=== PATIENT | male | born 1925 | race Caucasian/White ===

== ENCOUNTER → 2017-04-20 | Outpatient (CLI) | payer MEDICARE, BC ==
[2017-04-20 12:17] LABS: ABNORMAL IP MESSAGE 1; BASOPHILS % 0.3 % (0.0-2.0); EOSINOPHILS # 0.2 10^3/ul (0.0-0.5); EOSINOPHILS % 1.5 % (0.0-7.0); HEMATOCRIT 35.3 % (42.0-52.0); HEMOGLOBIN 11.3 g/dl (14.0-18.0); LYMPHOCYTES # 1.6 10^3/ul (0.8-2.9); LYMPHOCYTES % 12.8 % (15.0-51.0); MEAN CORPUSCULAR HEMOGLOBIN 30.7 pg (29.0-33.0); MEAN CORPUSCULAR VOLUME 95.9 fl (82.0-101.0); MEAN PLATELET VOLUME 8.8 fl (7.4-10.4); MONOCYTE # 2.3 10^3/ul (0.3-0.9); MONOCYTES % 17.7 % (0.0-11.0); NEUTROPHIL # 8.6 10^3/ul (1.6-7.5); NEUTROPHILS % 66.5 % (39.0-77.0); PLATELET COUNT 336 10^3/UL (140-415); POSITIVE DIFF @See below; RED BLOOD COUNT 3.68 10^6/ul (4.70-6.10); WHITE BLOOD COUNT 12.8 10^3/ul (4.8-10.8)
[2017-04-20 12:39] LABS: ALBUMIN 2.8 g/dl (3.3-4.9); ALBUMIN/GLOBULIN RATIO 1.12; BILIRUBIN,INDIRECT 0.2 mg/dl (0-1.1); BILIRUBIN,TOTAL 0.2 mg/dl (0.2-1.3); CALCIUM 8.2 mg/dl (8.4-10.2); CREATININE 0.9 mg/dl (0.61-1.24); POTASSIUM 3.9 mmol/L (3.5-5.1); TOTAL PROTEIN 5.3 g/dl (6.1-8.1)
[2017-04-20 13:10] LABS: CARCINOEMBRYONIC ANTIGEN 0.4 ng/ml (0.0-5.0)
== END | disposition home or self-care (01) ==
LOC: LAB 11:44
PROVIDERS: ATTEND Internal Medicine
DX: D64.9 Anemia, unspecified (principal); Z85.9 Personal history of malignant neoplasm, unspecified
CPT/HCPCS: 80053; 82378; 85025; 86301

== ENCOUNTER 2017-05-22 13:53 | Inpatient (IN) | payer MEDICARE, BC ==
[~2017-05-22] VITALS: Ht 172.7 cm; Wt 51.3 kg
[2017-05-22 20:01] VITALS: Ht 172.7 cm; Wt 51.3 kg
[2017-05-22] MEDS ORDERED: POTA10TA37 PO (20:23)
[2017-05-22] MEDS ORDERED: HYDR25TA6 PO (20:23)
[2017-05-22] MEDS ORDERED: VIT1TABL33 PO (20:23)
[2017-05-22] MEDS ORDERED: TAMS0.4C2 PO (20:23)
[2017-05-22] MEDS ORDERED: FINA5TAB4 PO (20:23)
[2017-05-22] MEDS ORDERED: LISI40TA9 PO (20:23)
[2017-05-22] MEDS ORDERED: ATEN100T PO (20:23)
[2017-05-22 20:56] VITALS: BP 128/75; RESP 20
[2017-05-22] MEDS ORDERED: ACETAMINOPHEN 500 MG TAB PO PRN (21:00)
[2017-05-22] MEDS: POTASSIUM CHLORIDE (SR) 10 MEQ TAB PO SCH (21:00)
[2017-05-22] MEDS ORDERED: TAMSULOSIN (SR) 0.4 MG CAP PO SCH (21:00)
[2017-05-22] MEDS: ATENOLOL 100 MG TAB PO SCH (21:00)
[2017-05-22] MEDS ORDERED: HYDROCODONE/APAP (5/325) TAB PO PRN (21:00)
[2017-05-22] MEDS ORDERED: ZOLPIDEM 5 MG TAB PO PRN (21:00)
[2017-05-22] MEDS: LISINOPRIL 20 MG TAB PO SCH (22:02)
[2017-05-22] MEDS: DEXTROSE 5%-0.45% NACL 1,000 ML IV SCH (22:04)
[2017-05-22 22:45] LABS: ABNORMAL IP MESSAGE 1; BASOPHILS % 0.3 % (0.0-2.0); EOSINOPHILS # 0.1 10^3/ul (0.0-0.5); EOSINOPHILS % 0.5 % (0.0-7.0); HEMATOCRIT 35.2 % (42.0-52.0); HEMOGLOBIN 11.3 g/dl (14.0-18.0); LYMPHOCYTES # 2.2 10^3/ul (0.8-2.9); LYMPHOCYTES % 14.5 % (15.0-51.0); MEAN CORPUSCULAR HEMOGLOBIN 30.9 pg (29.0-33.0); MEAN CORPUSCULAR HGB CONC 32.1 g/dl (32.0-37.0); MEAN CORPUSCULAR VOLUME 96.2 fl (82.0-101.0); MONOCYTE # 1.7 10^3/ul (0.3-0.9); MONOCYTES % 10.9 % (0.0-11.0); NEUTROPHILS % 71.8 % (39.0-77.0); PLATELET COUNT 348 10^3/UL (140-415); POSITIVE DIFF @See below; RED BLOOD COUNT 3.66 10^6/ul (4.70-6.10); RED CELL DISTRIBUTION WIDTH 14.8 % (11.5-14.5); WHITE BLOOD COUNT 15.2 10^3/ul (4.8-10.8)
[2017-05-22 23:01] LABS: INR 0.98; PARTIAL THROMBOPLASTIN TIME 27.8 Sec (25.0-35.0)
[2017-05-22 23:03] LABS: CALCIUM 8.6 mg/dl (8.4-10.2); CREATININE 0.92 mg/dl (0.61-1.24); POTASSIUM 4.1 mmol/L (3.5-5.1)
[2017-05-23 02:55] VITALS: BP 118/67; RESP 20
[2017-05-23 03:02] LABS: ADD UMIC NO; UR ASCORBIC ACID 40 mg/dL (NEGATIVE); UR BILIRUBIN (Dip) NEGATIVE (NEGATIVE); UR BLOOD (Dip) NEGATIVE (NEGATIVE); UR CLARITY CLEAR (CLEAR); UR COLOR YELLOW (YELLOW); UR GLUCOSE (Dip) NEGATIVE (NEGATIVE); UR KETONES (Dip) NEGATIVE (NEGATIVE); UR LEUKOCYTE ESTERASE (Dip) NEGATIVE Leu/ul (NEGATIVE); UR NITRITE (Dip) NEGATIVE (NEGATIVE); UR SPECIFIC GRAVITY (Dip) 1.019 (1.003-1.030); UR TOTAL PROTEIN (Dip) NEGATIVE (NEGATIVE); UR UROBILINOGEN (Dip) NEGATIVE (NEGATIVE)
--- NOTE | 2017-05-23 07:41 | RADRPT ---
PROCEDURE: XR Chest. CLINICAL INDICATION: Cough. Weight loss. TECHNIQUE: Single frontal view. COMPARISON: No prior study is available for comparison. FINDINGS: The lungs are clear. The heart size is normal. There is calcification in the aorta consistent with atherosclerosis. There is no pleural effusion. There is no pneumothorax. IMPRESSION: 1. Atherosclerosis. 2. Otherwise normal chest x-ray. RPTAT: QQ .Phillip Ryan MD, MD Date Time Electronically viewed and signed by .Phillip Ryan MD, on 05/23/2017 07:41 .R/
[2017-05-23 07:52] VITALS: BP 120/69; RESP 18
[2017-05-23] MEDS: LISINOPRIL 20 MG TAB PO SCH ×2 (09:00→11:51)
[2017-05-23] MEDS: HYDROCHLOROTHIAZIDE 25 MG TAB PO SCH ×2 (09:00→11:50)
[2017-05-23] MEDS: POTASSIUM CHLORIDE (SR) 10 MEQ TAB PO SCH ×4 (09:00→20:25)
[2017-05-23] MEDS: FINASTERIDE 5 MG TAB PO SCH ×2 (09:00→11:49)
[2017-05-23] MEDS: ATENOLOL 100 MG TAB PO SCH ×2 (09:00→11:51)
[2017-05-23] MEDS ORDERED: BARIUM SULF 2% 450 ML BTL (BERRY SMOOTHIE) PO ONE (11:00)
--- NOTE | 2017-05-23 11:00 | HP ---
DATE OF ADMISSION: 05/22/2017 HISTORY OF PRESENT ILLNESS: The patient is an 89-year-old gentleman who is being admitted for evaluation of severe weakness, generalized, with persistent weight loss over the past 4 months. The patient has lost 30 pounds in the last 4-5 months. He states that he has reasonable appetite but complaining of increased gaseous distention, a feeling of bloating and occasional pain in the left upper and lower quadrant. Denies any history of GI bleeds. REVIEW OF SYSTEMS: HEAD: No history of headaches, focal weakness or numbness. No prior history of strokes. Eyes; history of macular degeneration. Has been on medications. ENT; complaints of recurrent tinnitus. No history of hearing loss. NECK: No history neck pain or thyroid disease. CHEST: Has no cough wheezing or asthma. Smoked for about for 5 years while in college. No history of bronchial asthma. No history of hemoptysis or TB. HEART: No PND, orthopnea, no palpitations. The patient does have hypertension and aortic stenosis, being followed by Cardiology. No prior history of CHF. GASTROINTESTINAL: As above. The patient has not had a colonoscopy recently, was supposed to be prepped and it could not be done from home as the patient lives alone and he has been getting increasingly frail and weak. GENITOURINARY: History of polyuria, history of benign prostatic hypertrophy. The patient has been recommended prostatectomy by Dr. Payan. HEMATOLOGICAL: No bleeding diathesis or anemia. GENERAL: History of weight loss as above. SKIN: No recent change in any lesions, any change in the color of any lesions. No history of excessive sun exposure. MEDICATIONS: Include atenolol 100 mg daily; lisinopril 40 mg daily; finasteride 1 tab daily; hydrochlorothiazide 50 mg daily; Klor-Con 10 mEq p.o. b.i.d. PHYSICAL EXAMINATION: GENERAL APPEARANCE: The patient is an average built male who appears frail and appears weak. Mild pallor without cyanosis. VITAL SIGNS: Blood pressure 120/69, temperature 98.4, O2 sat 97 percent on room air. HEENT: Head normocephalic. Mild pallor without cyanosis. Tongue is moist. NECK: Supple. No thyromegaly, bruits, lymphadenopathy. CHEST: Clinically clear. HEART: S1, S2 heard with no definite gallops. Faint systolic murmur with good conduction. ABDOMEN: Umbilical hernia present. Mild tenderness in the left upper and left lower quadrant without rebound. No bruits heard over the abdomen. EXTREMITIES: No edema. Pedal pulsation 2+ bilaterally. Homans sign is negative. RECTAL EXAM: Deferred due to patient discomfort. LABORATORY DATA: So for workup included getting ultrasound of the abdomen and pelvis that showed increased size of the prostate and multiple cysts in the right hepatic lobe of the liver. No gallstones were seen. No thickening of the gallbladder wall. The CEA and CA-19-9 levels were normal about a month ago. His hemoglobin has been gradually dropping over the last 3 months with the last hemoglobin of 11.3 on 04/20/2017. Initial WBC count of 15.2, hematocrit 35.2, platelet count 348,000. BUN 23, creatinine 0.92, potassium 4.1. Chest x-ray shows normal-sized heart, lung win are clear. IMPRESSION: 1. Recent weight loss with progressing anemia, concern about underlying malignancy. 2. Benign prostatic hypertrophy. 3. Symptomatic umbilical hernia. 4. Hypertension. 5. Aortic stenosis. PLAN: We will check stool for OB. Proceed with CT of the abdomen and pelvis. Obtain LDH levels. Obtain GI consultation with Dr. Julian. Consider colonoscopy and upper endoscopy. Consider hematology/oncology consultation if necessary. Dictated By: Satnam Cho MD /felipe/haley /Document#: [id number]
[2017-05-23] MEDS: DEXTROSE 5%-0.45% NACL 1,000 ML IV SCH (11:56)
--- NOTE | 2017-05-23 13:18 | CONS ---
DATE OF ADMISSION: 05/22/2017 DATE OF CONSULTATION: 05/23/2017 HISTORY OF PRESENT ILLNESS: Patient is an 89-year-old gentleman being admitted to the hospital for abdominal pain of 2 months' duration, and significant weight loss. He lost 30 pounds. As per the patient, he has been eating good. His appetite is good, and he does not know why he is losing weight. No GI bleeding. No chest pain. No shortness of breath. No or AREA SAFETY MANAGER problems. The abdominal pain is relieved once he passes flatus. REVIEW OF SYSTEMS: Negative. MEDICATION: All reviewed. He is on atenolol, lisinopril, finasteride for BPH, hydrochlorothiazide. PHYSICAL EXAMINATION: GENERAL APPEARANCE: Looks good for his age. Alert, awake, not in distress. VITAL SIGNS: Stable. HEENT: Unremarkable. NECK: Supple. No thyromegaly. No lymphadenopathy. HEART: No murmur, gallop, or click. LUNGS: Clear. ABDOMEN: Benign, except for the umbilical hernia. EXTREMITIES: No edema. AREA SAFETY MANAGER: Grossly within normal limits. LABORATORY: The patient had a sonogram done at an outside which showed BPH, cyst in the right lobe of the liver. No gallstones. His CEA and CA 19-9 were all within normal limits. His hemoglobin has been gradually dropping. At this time, the hematocrit is 35.2. BUN is 23. IMPRESSION: 1. Abdominal pain confined to the umbilical area. 2. Weight loss 30 pounds. 3. Anemia. 4. Benign prostatic hypertrophy. 5. Hypertension. 6. Aortic stenosis. PLAN: At this point, a CAT scan of the abdomen and pelvis has been ordered. We will review that. If it is negative, will proceed with EGD and colonoscopy tomorrow. Thank you, once again, for the referral. Dictated By: Aleksey Julian MD /fnt/ec /Document#: [id number] CC: Satnam Cho MD;*End*
[2017-05-23] MEDS ORDERED: BISACODYL (EC) 5 MG TAB PO ONE ×2 (14:00→20:00)
[2017-05-23 14:41] LABS: ADD UMIC NO; UR ASCORBIC ACID 20 mg/dL (NEGATIVE); UR BILIRUBIN (Dip) NEGATIVE (NEGATIVE); UR BLOOD (Dip) NEGATIVE (NEGATIVE); UR CLARITY CLEAR (CLEAR); UR COLOR YELLOW (YELLOW); UR GLUCOSE (Dip) NEGATIVE (NEGATIVE); UR KETONES (Dip) NEGATIVE (NEGATIVE); UR LEUKOCYTE ESTERASE (Dip) NEGATIVE Leu/ul (NEGATIVE); UR NITRITE (Dip) NEGATIVE (NEGATIVE); UR SPECIFIC GRAVITY (Dip) 1.018 (1.003-1.030); UR TOTAL PROTEIN (Dip) NEGATIVE (NEGATIVE); UR UROBILINOGEN (Dip) NEGATIVE (NEGATIVE)
[2017-05-23 14:44] VITALS: BP 130/71; RESP 16
[2017-05-23] MEDS ORDERED: PEG/ELECTROLYTES 4L BTL PO ONE ×2 (15:00→18:00)
[2017-05-23] MEDS ORDERED: SOD CHLORIDE 0.9% 100 ML ONE (15:37)
[2017-05-23] MEDS ORDERED: IOHEXOL 300MG/ML 150 ML BTL ONE (15:38)
[2017-05-23 15:56] LABS: ABNORMAL IP MESSAGE 1; BASOPHILS % 0.3 % (0.0-2.0); EOSINOPHILS # 0.2 10^3/ul (0.0-0.5); HEMATOCRIT 36.8 % (42.0-52.0); HEMOGLOBIN 11.7 g/dl (14.0-18.0); LYMPHOCYTES # 2.5 10^3/ul (0.8-2.9); LYMPHOCYTES % 15.6 % (15.0-51.0); MEAN CORPUSCULAR HEMOGLOBIN 30.3 pg (29.0-33.0); MEAN CORPUSCULAR HGB CONC 31.8 g/dl (32.0-37.0); MEAN CORPUSCULAR VOLUME 95.3 fl (82.0-101.0); MEAN PLATELET VOLUME 9.1 fl (7.4-10.4); MONOCYTE # 1.8 10^3/ul (0.3-0.9); MONOCYTES % 11.3 % (0.0-11.0); NEUTROPHILS % 70.4 % (39.0-77.0); PLATELET COUNT 379 10^3/UL (140-415); POSITIVE DIFF @See below; RED BLOOD COUNT 3.86 10^6/ul (4.70-6.10); RED CELL DISTRIBUTION WIDTH 14.7 % (11.5-14.5); WHITE BLOOD COUNT 15.8 10^3/ul (4.8-10.8)
[2017-05-23 16:25] LABS: ALBUMIN 2.5 g/dl (3.3-4.9); ALBUMIN/GLOBULIN RATIO 0.96; CALCIUM 8.3 mg/dl (8.4-10.2); CREATININE 0.79 mg/dl (0.61-1.24); POTASSIUM 4.2 mmol/L (3.5-5.1); TOTAL PROTEIN 5.1 g/dl (6.1-8.1)
[2017-05-23 17:31] LABS: FOLATE 5.6 ng/ml (2.8-20.0)
--- NOTE | 2017-05-23 17:45 | RADRPT ---
PROCEDURE: CT Abdomen and Pelvis with contrast. CLINICAL INDICATION: Abdominal and pelvic pain. Weight loss. TECHNIQUE: CT scan of the abdomen and pelvis with contrast was performed. The patient was scanned following the uncomplicated intravenous administration of 100 cc of Omnipaque-300. Coronal and sag ittal reformatted images were obtained from the axial source images. Images were reviewed on a high- resolution PACS workstation. Total exam DLP is 387.94 mGy-cm. CTDIvol is 7.95 mGy. One or more of the following dose reduction techniques were used: Automated exposure control, adjustment of the mA and/or kV according to patient size, use of iterative reconstruction technique. COMPARISON: None. FINDINGS: The lung bases are normal. There is no pleural effusion. The liver is normal in size and attenuation. There are multiple round low attenuation nodules in th e liver consistent with benign cysts with the largest measuring 2.4 cm in diameter. There is no oth er focal hepatic lesion. The gallbladder is contracted but otherwise unremarkable. The bile ducts are normal. The spleen is normal in size. There is no focal splenic lesion. There is a right adrenal enhancing nodule measuring 1.5 x 1.2 cm with a small associated calcificati on. The left adrenal is normal. The pancreas is unremarkable with no mass or evidence of pancreatitis. Both kidneys demonstrate normal contrast enhancement. There is no solid renal mass or hydronephrosis . There is a small benign cyst superiorly in the left kidney. The abdominal aorta is not dilated. There is calcification in the aorta consistent with atheroscler osis. There is no retroperitoneal lymphadenopathy or mass. The prostate is enlarged. There is no pelvic mass. The bladder base is deformed from the enlarged prostate. A bladder mass cannot be excluded. The periappendiceal region is unremarkable with no evidence of appendicitis. The stomach is distended. There is mild diffuse small bowel dilatation. There is diffuse thickenin g of the wall of the distal ileum. There are bilateral inguinal hernias containing bowel without ev idence of obstruction. Left is larger than right. A small amount of free fluid is present in the pelvis and in the left inguinal hernia. There are degenerative changes of the spine. There is thoracic scoliosis convex right and lumbar sc oliosis convex left. There is no fracture or lytic lesion. There is grade 1 anterolisthesis at L4- 5 and a left pars defect is present at L4. IMPRESSION: 1. Multiple benign liver cysts. 2. Contracted but otherwise unremarkable gallbladder. 3. Right adrenal nodule measuring 1.5 x 1.2 cm. This is probably benign and follow up and 6 months is advised. 4. Small benign left renal cyst. 5. Atherosclerosis. 6. Enlarged prostate. Correlation with PSA advised. 7. Distended stomach. Mild diffuse small bowel dilatation with no definite evidence of obstruction . 8. Diffuse thickening of the wall of the distal ileum, nonspecific. Differential diagnosis include s ischemia, inflammation, and infection. Clinical correlation advised. 9. Bilateral inguinal hernias containing bowel without evidence of obstruction with left larger carmen n right. 10. Small amount of free fluid in the pelvis and in the left inguinal hernia. 11. Degenerative changes of the spine. 12. Thoracic scoliosis convex right and lumbar scoliosis convex left. 13. Grade 1 anterolisthesis at L4-5 and left pars defect at L4. RPTAT: QQ .Phillip Ryan MD, MD Date Time Electronically viewed and signed by .Phillip Ryan MD, MD on 05/23/2017 17:45 .R/
[2017-05-23] MEDS ORDERED: MAGNESIUM CITRATE 300 ML BTL PO ONE (19:00)
[2017-05-23 19:52] VITALS: BP 106/71; RESP 20
[2017-05-23] MEDS: TAMSULOSIN 0.4 MG PO SCH (20:25)
[2017-05-24] VITALS (12 sets, daily range): BP systolic 101–137; BP diastolic 59–83; PULSE 60–70; RESP 15–20
[2017-05-24] MEDS: DEXTROSE 5%-0.45% NACL 1,000 ML IV SCH ×4 (01:00→20:56)
[2017-05-24] MEDS: PANTOPRAZOLE 40 MG INJ IV SCH ×2 (03:20→05:26)
[2017-05-24] MEDS: HYDROCHLOROTHIAZIDE 25 MG PO SCH (09:00)
[2017-05-24] MEDS: FINASTERIDE 5 MG PO SCH (09:00)
[2017-05-24] MEDS: LISINOPRIL 40 MG PO SCH (09:00)
[2017-05-24] MEDS: ATENOLOL 100 MG PO SCH (09:00)
[2017-05-24] MEDS ORDERED: PROPOFOL 40 ML ONE (10:09)
[2017-05-24] MEDS ORDERED: LIDOCAINE 2% (SDV) 5 ML INJ ONE (10:09)
[2017-05-24] MEDS ORDERED: EPHEDrine SULFATE 50 MG/5 ML SYG ONE (10:28)
[2017-05-24] MEDS ORDERED: PHENYLephrine (100 MCG/ML) 5ML SYG ONE ×2 (10:29→10:50)
--- NOTE | 2017-05-24 10:43 | OPPN ---
Date/Time of Note Date/Time of Note DATE: 05/24/17 TIME: 10:40 Operative Report Preoperative Diagnosis weight loss constipation Postoperative Diagnosis same Operation/Procedure Performed sessile polyp 1 cm ,ascending colon, cold snare polypectomy gastritis gastroparesis Provider: RIDGE RICHARDS MD Anesthesia Type: MAC Estimated blood loss: none Transfusion Required: no Specimen: none Grafts/Implants: none Complications: no RIDGE RICHARDS MD May 24, 2017 10:43
[2017-05-24] MEDS ORDERED: FENTAnyl 25 MCG IV PRN (11:30)
[2017-05-24] MEDS ORDERED: MEPERIDINE 25 MG INJ IV PRN (11:30)
[2017-05-24] MEDS ORDERED: DIPHENHYDRAMINE 25 MG INJ IV PRN (11:30)
[2017-05-24] MEDS ORDERED: ONDANSETRON 4 MG INJ IV PRN (11:30)
--- NOTE | 2017-05-24 12:08 | GILP ---
DATE OF PROCEDURE: 05/24/2017 PROCEDURE PERFORMED: EGD with biopsy. INDICATION: An 89-year-old male undergoing this procedure for significant weight loss, 30-40 pounds and also abdominal pain and severe constipation. The purpose is to evaluate the upper GI tract, lower GI tract to rule out malignancy. The risks of the procedure, related complications, and anesthetic risks and alternatives discussed and informed consent was obtained. DESCRIPTION OF PROCEDURE: The patient was brought to the GI lab, sedated by Dr. Abreu. After optimal sedation, scope was passed as much ease in the esophagus. He had a multiple erosion identified in the distal part of the esophagus consistent with the diagnosis of erosive esophagitis. Z-line was at 37 cm. Stomach mucosa showed some no old undigested food particles consistent with diagnosis of gastroparesis. Duodenum, first and second part appeared normal. Stomach mucosa revealed gastritis. Three biopsies obtained to rule out H pylori infection. Retroversion done, again food was identified in the fundal area. Scope was straightened out and removed with good patient tolerance. IMPRESSION: 1. Erosive esophagitis, LA class B to C number. 2. Z-line regular at 37 cm. 3. Gastritis. 4. Normal duodenum. 5. Gastroparesis. Ten percent of the fundal area was coated with undigested food. PLAN: 1. To review histopathology. 2. Start the patient on low dose of Reglan. PROCEDURE PERFORMED: Colonoscopy with polypectomy. DESCRIPTION OF PROCEDURE: Digital examination done which was normal. Prostate was enlarged. Scope was passed with much ease into the rectum, advanced to sigmoid, descending, transverse colon all the way into the cecum. Appendiceal orifice identified. IC valve identified could not go into terminal ilium. There was a polyp identified in the ascending colon. Close to the IC valve. Probably 2 cm away from the IC valve. Successfully removed by cold snaring technique. The rest of the colon appeared normal, it was thoroughly inspected. There was a scattered stool in the transverse and descending colon, but grossly it was normal. Hemorrhoids identified. IMPRESSION: 1. Hemorrhoid. 2. One cm sessile polyp in the ascending colon next to the ileocecal (IC) valve. Successfully removed by cold snare technique. 3. Normal caput of the cecum and also appendix. 4. Some scattered stool precluding the visibility by 5-10 percent at some angulation in the transverse colon and also in the descending colon. PLAN: 1. Stay on high fiber diet. 2. This finding cannot explain the weight loss. 3. We will work him up further to identify the cause of his weight loss. Dictated By: Aleksey Julian MD /felipe/sommer /Document#: [id number] CC: Satnam Cho MD;*EndCC*
[2017-05-24] MEDS: POTASSIUM CHLORIDE (SR) 10 MEQ TAB PO SCH ×2 (13:36→20:56)
[2017-05-24 14:55] LABS: ABNORMAL IP MESSAGE 1; BASOPHIL # 0.1 10^3/ul (0.0-0.1); BASOPHILS % 0.4 % (0.0-2.0); EOSINOPHILS # 0.1 10^3/ul (0.0-0.5); EOSINOPHILS % 0.8 % (0.0-7.0); HEMATOCRIT 40.5 % (42.0-52.0); HEMOGLOBIN 12.7 g/dl (14.0-18.0); LYMPHOCYTES # 1.8 10^3/ul (0.8-2.9); LYMPHOCYTES % 12.9 % (15.0-51.0); MEAN CORPUSCULAR HEMOGLOBIN 29.9 pg (29.0-33.0); MEAN CORPUSCULAR HGB CONC 31.4 g/dl (32.0-37.0); MEAN CORPUSCULAR VOLUME 95.3 fl (82.0-101.0); MONOCYTES % 14.5 % (0.0-11.0); NEUTROPHILS % 70.5 % (39.0-77.0); PLATELET COUNT 379 10^3/UL (140-415); POSITIVE DIFF @See below; RED BLOOD COUNT 4.25 10^6/ul (4.70-6.10); RED CELL DISTRIBUTION WIDTH 14.7 % (11.5-14.5); WHITE BLOOD COUNT 13.7 10^3/ul (4.8-10.8)
--- NOTE | 2017-05-24 15:16 | PN ---
DATE: 05/24/2017 SUBJECTIVE DATA: The patient has generalized weakness. Oral intake is fair. Denies any chest pain, or shortness of breath. OBJECTIVE DATA: VITAL SIGNS: The patient is afebrile. Blood pressure 126/76, pulse 60 per minute, regular. HEENT: Head normocephalic. Mild pallor with cyanosis. CHEST: Clinically clear. HEART: S1, S2. No definite gallops. EXTREMITIES: No edema. LABORATORY AND DIAGNOSTIC DATA: Repeat blood white blood cell count 15.8 with hematocrit 36.8, platelets 379,000. Sodium 138, potassium 4.2, albumin is 2.5. Vitamin B12 197. Folate 5.6. IMPRESSION: 1. Recent weight loss. Etiology undetermined. 2. Persistent leukocytosis. No obvious signs of infection. 3. Benign prostatic hypertrophy. 4. Hypertension. 5. Aortic stenosis. 6. Symptomatic umbilical hernia. 7. Anemia, etiology undetermined. PLAN: Dr. Julian's GI consultation recommendations greatly appreciated. Endoscopy findings noted. Will obtain oncology consult with Dr. Hollis. I am not clear as to the etiology of weight loss. The patient is hypoalbuminemic. Will encourage oral intake and also some supplement B12 with injections. Dictated By: Satnam Cho MD /felipe/oz /Document#: [id number] LON
[2017-05-24 15:17] LABS: ALBUMIN 2.7 g/dl (3.3-4.9); ALBUMIN/GLOBULIN RATIO 0.96; BILIRUBIN,INDIRECT 0.3 mg/dl (0-1.1); BILIRUBIN,TOTAL 0.3 mg/dl (0.2-1.3); CALCIUM 9.1 mg/dl (8.4-10.2); CREATININE 0.83 mg/dl (0.61-1.24); POTASSIUM 3.8 mmol/L (3.5-5.1); TOTAL PROTEIN 5.5 g/dl (6.1-8.1)
[2017-05-24] MEDS: CYANOCOBALAMIN 500 MCG TAB PO SCH (15:33)
[2017-05-24 18:35] LABS: IRON 48 ug/dl (35-150); URIC ACID 5.4 mg/dl (3.1-7.9)
[2017-05-24 18:46] LABS: TOTAL IRON BINDING CAPACITY 216 ug/dl (241-421)
[2017-05-24 19:12] LABS: FERRITIN 20.6 ng/ml (11.1-264.0)
[2017-05-24 19:42] LABS: FOLATE 7.6 ng/ml (2.8-20.0)
[2017-05-24] MEDS: TAMSULOSIN 0.4 MG PO SCH (20:56)
[2017-05-25 02:39] VITALS: BP 116/75; RESP 20
[2017-05-25] MEDS: DEXTROSE 5%-0.45% NACL 1,000 ML IV SCH (03:49)
[2017-05-25 08:16] VITALS: BP 136/83; RESP 18
[2017-05-25] MEDS: CYANOCOBALAMIN 500 MCG TAB PO SCH (10:25)
[2017-05-25] MEDS: FAMOTIDINE 20 MG INJ IV SCH (10:25)
[2017-05-25] MEDS: POTASSIUM CHLORIDE (SR) 10 MEQ TAB PO SCH ×2 (10:26→21:07)
[2017-05-25] MEDS: ATENOLOL 100 MG PO SCH (10:27)
[2017-05-25] MEDS: FINASTERIDE 5 MG PO SCH (10:27)
[2017-05-25] MEDS: HYDROCHLOROTHIAZIDE 25 MG PO SCH (10:28)
[2017-05-25] MEDS: LISINOPRIL 40 MG PO SCH (10:29)
--- NOTE | 2017-05-25 11:28 | CONS ---
Date/Time of Note Date/Time of Note DATE: 05/25/17 TIME: 11:27 Assessment/Plan Assessment/Plan Additional Assessment/Plan IMPRESSION: 1. Abdominal pain confined to the umbilical area. 2. Weight loss 30 pounds. 3. Anemia. 4. Benign prostatic hypertrophy. 5. Hypertension. 6. Aortic stenosis. 7. B12 deficiency Plan B12 injection Consultation Date/Type/Reason Admit Date/Time May 23, 2017 at 22:34 Initial Consult Date 24 HR Interval Summary Constitutional: improved, no complaints Exam/Review of Systems Vital Signs Vitals Vital Signs Date Time Temp Pulse Resp B/P Pulse Ox O2 Delivery O2 Flow Rate FiO2 05/25/17 08:16 98.8 88 18 136/83 98 05/24/17 11:35 Nasal Cannula 2.0 Intake and Output 05/24/17 05/24/17 05/25/17 15:00 23:00 07:00 Intake Total 300 ml 1060 ml 675 ml Output Total 420 ml Balance 300 ml 640 ml 675 ml Exam Constitutional: alert, oriented, well developed Psych: nl mood/affect, no complaints Head: atraumatic, normocephalic Eyes: EOMI, PERRL, nl conjunctiva, nl lids, nl sclera ENMT: nl external ears & nose, nl lips & teeth, nl nasal mucosa & septum Neck: non-tender, supple Respiratory: clear to auscultation, normal air movement Cardiovascular: nl pulses, regular rate and rhythm Gastrointestinal: nl liver, spleen, non-tender, soft Musculoskeletal: nl extremities to inspection, nl gait and stance Extremities: normal pulses Neurological: TRACK GREASER II-XII intact, nl mental status, nl speech, nl strength Skin: nl turgor, No rash or lesions Lymph: nl lymph nodes Results Result Diagram: 05/24/17 1409 05/24/17 1409 Results 24 hrs Laboratory Tests Test 05/24/17 14:09 05/24/17 17:22 White Blood Count 13.7 H Red Blood Count 4.25 L Hemoglobin 12.7 L Hematocrit 40.5 L Mean Corpuscular Volume 95.3 Mean Corpuscular Hemoglobin 29.9 Mean Corpuscular Hemoglobin Concent 31.4 L Red Cell Distribution Width 14.7 H Platelet Count 379 Mean Platelet Volume 9.0 Neutrophils % 70.5 Lymphocytes % 12.9 L Monocytes % 14.5 H Eosinophils % 0.8 Basophils % 0.4 Nucleated Red Blood Cells % 0.0 Neutrophils # (Manual) 9.7 H Lymphocytes # 1.8 Monocytes # 2.0 H Eosinophils # 0.1 Basophils # 0.1 Nucleated Red Blood Cells # 0.0 Sodium Level 140 Potassium Level 3.8 Chloride Level 100 Carbon Dioxide Level 31 Anion Gap 13 Blood Urea Nitrogen 13 Creatinine 0.83 Glucose Level 118 Calcium Level 9.1 Total Bilirubin 0.3 Direct Bilirubin 0.00 Indirect Bilirubin 0.3 Aspartate Amino Transf (AST/SGOT) 15 Alanine Aminotransferase (ALT/SGPT) 24 Alkaline Phosphatase 78 Total Protein 5.5 L Albumin 2.7 L Globulin 2.80 Albumin/Globulin Ratio 0.96 Uric Acid 5.4 Iron Level 48 Total Iron Binding Capacity 216 L Percent Iron Saturation 22 Ferritin 20.6 Vitamin B12 Level 227 L Folate 7.6 Immunoglobulin A 181 Immunoglobulin G 489 L Immunoglobulin M 29 L Medications Medications Current Medications Potassium Chloride (Klor-Con 10) 10 meq BID PO Last administered on 05/25/17 10 :26; Admin Dose 10 MEQ; Start 05/22/17 at 21:00 Acetaminophen 500 mg 500 mg Q4H PRN PO PAIN AND OR ELEVATED TEMP; Start at 21:00 Dextrose/Sodium Chloride (D5-1/2ns) 1,000 ml @ 75 mls/hr [id number] IV Last administered on 05/25/17 03:49; Admin Dose 75 MLS/HR; Start 05/22/17 at 21:00 Acetaminophen/ Hydrocodone Bitart ([place] (5/325)) 1 tab Q4H PRN PO SEVERE PAIN LEVEL 7-10; Start 05/22/17 at 21:00 Patient Own Medication 1 ea DAILY PO Last administered on 05/25/17 10:28; Admin Dose 1 EA; Start 05/24/17 at 09:00 Patient Own Medication 1 ea DAILY PO Last administered on 05/25/17 10:29; Admin Dose 1 EA; Start 05/24/17 at 09:00 Patient Own Medication 1 ea HS PO Last administered on 05/24/17 20:56; Admin Dose 1 EA; Start 05/23/17 at 21:00 Patient Own Medication 1 ea DAILY PO Last administered on 05/25/17 10:27; Admin Dose 1 EA; Start 05/24/17 at 09:00 Patient Own Medication 1 ea DAILY PO Last administered on 05/25/17 10:27; Admin Dose 1 EA; Start 05/24/17 at 09:00 Famotidine (Pepcid Iv) 20 mg DAILY IV Last administered on 05/25/17 10:25; Admin Dose 20 MG; Start 05/25/17 at 09:00 Cyanocobalamin (Vitamin B12) 1,000 mcg DAILY PO Last administered on 05/25/17 10:25; Admin Dose 1,000 MCG; Start 05/24/17 at 14:00 RIDGE RICHARDS MD May 25, 2017 11:28
--- NOTE | 2017-05-25 12:11 | EN ---
Date/Time of Note Date/Time of Note DATE: 05/25/17 TIME: 12:02 Event Note Medicine Medicine Event Note Hematology/Oncology consult dictated. Pt is a 89 y/o male with mild leukocytosis. Has experienced a 30 lb weight loss in the pas 4 mos. Has had some c/o abd pain and "bloating". Has not had N /V. No c/o dysphagia or odynophagia. No mouth or tongue soreness. No paresthesias. Vit B12 level has been found to be decreased on 2 separate determinations. The 2nd was obtained 2-3 hours after the pt had been give 1000 mcg of Vit B12 IM. EGD detected esophagitis and gastritis. Bx's are pending. Not clearly an atrophic gastritis. Pt also found to have gastroparesis. Has been started on metoclopramide and daily Vit B12. Will also start daily folic acid. Review of peripheral smear does not show any changes consistent with a megaloblastic process. Only abn besides the mild leukocytosis is a mild persistent monocytosis. Have requested a methylmalonic acid and homocysteine level, intrinsic factor blocking antibodies and parietal cell antibodies. BEATRIZ BEARD MD May 25, 2017 12:11
--- NOTE | 2017-05-25 13:02 | CONS ---
DATE OF ADMISSION: 05/23/2017 DATE OF CONSULTATION: 05/25/2017 REASON FOR CONSULTATION: Leukocytosis and weight loss. HISTORY OF PRESENT ILLNESS: Dear Dr. Cho, thank you very much for asking me to see this very pleasant gentleman in hematologic and oncologic consultation. As you know Mr. Ngo is an 89-year-old male who has actually been in relatively good health until recently. The patient states that in the past 3-4 months he has experienced a weight loss which he estimates 30 pounds. The patient states that he has had a good appetite during this time, but that is intake has been limited because of abdominal pain and feeling of "bloating". The patient is somewhat unclear as to the exact location of the pain, as to whether not the pain is precipitated by food intake. As noted, the patient states he has had some complaints of feeling of distention. He states this is relieved by passing flatus. He has not had nausea, vomiting. He denies any change in bowel habits. He has not noticed any melena or hematochezia. The patient has also been noted to have a leukocytosis. It is unclear for how long this has been an issue. Although the patient did have a CBC done here in the laboratory on 04/20/2017. At that time, his white count was 12,800 with an absolute neutrophil count of 8600, and absolute lymphocyte count of 1600, absolute monocyte count of 2300, red blood cell count was 3.68 million, hemoglobin 11.3, hematocrit 35.3, MCV 95.9, MCH 30.7, MCHC 32, and platelet count was 336,000. A chemistry done on that day included a comprehensive metabolic panel. Sodium was 143, potassium 3.9, BUN 22, creatinine 0.9, calcium 8.2 with albumin of 2.8, total bilirubin 0.2, direct bilirubin 0, AST 14, ALT 25, alkaline phosphatase 78, total protein was 5.3, albumin 2.8. Also, done at that time was a CEA of 0.4, and CA 19-9 was 5 was 5. On admission at this time the patient's white count was 15,200, with an absolute neutrophil count of 10,900, absolute lymphocyte count of 2200, absolute monocyte count of 1700. The patient's red blood cell count 3.65 million, hemoglobin 11.3, hematocrit 35.2, MCV 96.2, MCH 30.9, MCHC 32.1. RDW 14.8, and platelet count 348,000. On 05/23/2017 white count was 15,808 and on 05/24/2017 it was 13,700. On admission the comprehensive metabolic panel was normal except for albumin of 2.5. Vitamin B12 level, however, was 197. Folic acid 5.6. Repeat vitamin B12 level was 227 and folic acid was 7.6. Iron 48, total iron- binding capacity 216, percent saturation 22 percent, and ferritin 20.6. Other than the patient's weight loss and some weakness, he has not had any other significant symptoms. He denies fevers, chills, or night sweats. He has had no cough or shortness of breath. He denies dysphagia or odynophagia. He has had no soreness of the tongue or mouth. The patient has had no change in bowel habit. He does have complaints of symptoms suggesting benign prostatic hypertrophy. PAST MEDICAL HISTORY: Includes a history of hypertension. He also has a history of benign prostatic hypertrophy as well as the diagnosis of psoriasis. He also has umbilical hernia. PAST SURGICAL HISTORY: Patient's only surgery was an appendectomy done at 16 years of age. MEDICATION: Include atenolol 100 mg daily. Lisinopril 40 mg daily. Finasteride 1 mg daily. Hydrochlorothiazide 50 mg daily, and potassium chloride 10 mEq twice a day. ALLERGIES: THE PATIENT STATES THAT HE MAY BE ALLERGIC TO SULFA CONTAINING MEDICATIONS. 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 He has not knowingly been exposed to any industrial toxins or ionizing radiation. The patient states he did smoke for a few years when he was a teenager, but has not smoked now for over 60 years. Uses alcohol minimally. The patient is unmarried. FAMILY HISTORY: Remarkable in that there is no known hematologic abnormalities within the family. Patient's father of renal carcinoma in his 80s. Patient's mother in her 80s of renal failure. She was on hemodialysis. He has a brother who is 87 years of age and apparently has had heart problems and knee replacements. He has no children. PHYSICAL EXAMINATION: GENERAL APPEARANCE: At this time reveals a well-developed, well- nourished, elderly male, appearing his stated age. The patient is in no acute distress. VITAL SIGNS: Temperature 98, 98.8, pulse 88 per minute and regular, respirations 18, blood pressure 136/83. Pulse oximetry is 98 percent on room air. SKIN: No ecchymosis, no petechiae. There there is scattered patches of scaling skin consistent with a diagnosis of psoriasis. These are mostly on the trunk area. HEENT: Normocephalic. No evidence of trauma. The pupils equal, round, react to light and accommodation. Sclerae nonicteric. Oral mucosa is moist without lesions. Tongue is well papillated. There is no gingival hyperplasia. No hypertrophy of Waldeyer's ring. No mucosal telangiectasias. NECK: Supple. No jugular distention, or thyroid enlargement. No carotid bruits. CHEST: Clear to auscultation and percussion. No rhonchi, wheezes, rales, or rubs. There is kyphoscoliosis present. BREASTS: No gynecomastia. HEART: Regular sinus rhythm. No S3, S4, murmurs, no rubs. ABDOMEN: Slightly distended, but soft. There are no masses or ascites. Bowel sounds are active. There is umbilical hernia present which is easily reduced. EXTREMITIES: Good range of motion. No clubbing. No edema or cyanosis. No palpable cords or Homans' sign. NEUROLOGIC: Normal. DISCUSSION: This patient does have persistent leukocytosis. The differential is been relatively normal, although there is a mild monocytosis. The peripheral smear has been reviewed. Red blood cell morphology is normal. White blood cells are slightly increased in number. There are no immature neutrophils, no hypersegmented polys and no nucleated red blood cells. There are some increased monocytes but they are normal in appearance. Lymphocytes are normal in number and appearance. Platelets are normal in number and appearance. The patient has been found to have vitamin B12 deficiency. The folic acid level is normal, but it is actually lower than 1 might expect. Particularly, the patient has vitamin B12 deficiency. Iron studies are also marginal. The patient has undergone an upper GI endoscopy and colonoscopy performed by Dr. Julian on 05/24/2017. The patient was found to have erosive esophagitis as well as gastritis. It is interesting there was also gastroparesis. It states that 10 percent of the fundal area was coated with digested food. Biopsies were taken. The patient has been started on metoclopramide. Colonoscopy did reveal a polyp near the ileocecal valve, which was removed. As noted, the peripheral smear does not show any megaloblastic changes. This is consistent with the patient's red blood cell indices which are also not consistent with a megaloblastic process. There are no hypersegmented polys. This is in spite of the fact that the vitamin B12 level is decreased on 2 separate determinations. The finding of gastritis could be could actually represent atrophic gastritis. This may be on the basis of vitamin B12 deficiency. This could also be the cause for the patient's gastroparesis. Weight loss may also result from vitamin B12 deficiency. I have taken the liberty of requesting intrinsic factor, blocking antibodies and parietal cell antibodies. I have also requested a homocystine level and methylmalonic acid level. The patient has already been started on vitamin B12 replacement, receiving 1000 mcg on a daily basis. His initial dose on 05/24/2017 at 1400 hours. The second vitamin B12 level of 227 was drawn almost 3 or 4 hours after the vitamin B12 have been given. This definitely documents the patient to be vitamin B12 deficient. Would continue the daily vitamin B12 for at least for a week. Then the patient would be started on monthly vitamin B12 parenterally. We will also start the patient on folic acid 1 mg daily. If the patient is in fact vitamin B12 deficient, we may find that the patient's iron levels drop once vitamin B12 has been replaced. Once again, thank you very much for the opportunity of participating in the medical care of this very pleasant patient. I will be happy to follow this patient with you and assist in his hematologic and oncologic evaluation, and follow up as necessary. Dictated By: Merritt Hollis MD /felipe/oz /Document#: [id number] CC: Satnam Cho MD; Aleksey Julian MD;*End*
[2017-05-25] MEDS: FOLIC ACID 1 MG TAB PO SCH (13:22)
[2017-05-25 14:01] VITALS: BP 117/66; RESP 20
--- NOTE | 2017-05-25 16:32 | PN ---
DATE: 05/25/2017 Dr. Hollis's detailed Hematology consultation and recommendations greatly appreciated. SUBJECTIVE DATA: The patient complains of generalized weakness. Denies any nausea, vomiting, able to tolerate p.o. feeding well, less abdominal pain today. PHYSICAL EXAM: GENERAL: Patient is in no acute distress. VITAL SIGNS: Temperature 98.2, blood pressure 117/66, O2 sats 97 percent on room air. HEENT: Mild pallor without cyanosis. Tongue is moist. CHEST: Clinically clear. ABDOMEN: Soft, umbilical hernia unchanged. EXTREMITIES: No edema. LABORATORY: WBC count 13.7, hematocrit 40.5, and platelets 379,000. Sodium 140, potassium 3.8, BUN 30, creatinine 0.83, calcium 9.1, and albumin is 2.7. Repeat vitamin B12 227. Folate 7.6, uric acid 5.4. Stool for OB is negative. IMPRESSION: 1. Weight loss. Etiology undetermined. 2. Vitamin B12 deficiency. 3. Hypertension. 4. Benign prostatic hypertrophy. PLAN: 1. We will continue recommendations per Dr. Julian and Dr. Hollis. 2. Repeat CBC and CMP in a.m. 3. Increase physical activity and observe. Dictated By: Satnam Cho MD /felipe/sommer /Document#: [id number]
[2017-05-25 19:28] VITALS: BP 117/72; RESP 21
[2017-05-25] MEDS: TAMSULOSIN 0.4 MG PO SCH (21:07)
[2017-05-26 01:23] LABS: PROTEIN, TOTAL 4.8 g/dL (6.1-8.1)
[2017-05-26 02:02] VITALS: BP 120/68; RESP 19
[2017-05-26 05:20] LABS: ABNORMAL IP MESSAGE 1; BASOPHILS % 0.2 % (0.0-2.0); EOSINOPHILS # 0.2 10^3/ul (0.0-0.5); EOSINOPHILS % 1.3 % (0.0-7.0); HEMOGLOBIN 10.7 g/dl (14.0-18.0); LYMPHOCYTES % 14.2 % (15.0-51.0); MEAN CORPUSCULAR HEMOGLOBIN 29.6 pg (29.0-33.0); MEAN CORPUSCULAR HGB CONC 31.5 g/dl (32.0-37.0); MEAN CORPUSCULAR VOLUME 94.2 fl (82.0-101.0); MEAN PLATELET VOLUME 9.1 fl (7.4-10.4); MONOCYTE # 2.2 10^3/ul (0.3-0.9); MONOCYTES % 15.8 % (0.0-11.0); NEUTROPHILS % 66.9 % (39.0-77.0); PLATELET COUNT 312 10^3/UL (140-415); POSITIVE DIFF @See below; RED BLOOD COUNT 3.61 10^6/ul (4.70-6.10); RED CELL DISTRIBUTION WIDTH 14.6 % (11.5-14.5); WHITE BLOOD COUNT 13.9 10^3/ul (4.8-10.8)
[2017-05-26 06:03] LABS: ALBUMIN 2.3 g/dl (3.3-4.9); CALCIUM 7.7 mg/dl (8.4-10.2); CREATININE 1.02 mg/dl (0.61-1.24); POTASSIUM 3.6 mmol/L (3.5-5.1); TOTAL PROTEIN 4.6 g/dl (6.1-8.1)
[2017-05-26 07:55] VITALS: BP 104/66; RESP 17
[2017-05-26] MEDS: FAMOTIDINE 20 MG INJ IV SCH (08:18)
[2017-05-26] MEDS: ATENOLOL 100 MG PO SCH (08:18)
[2017-05-26] MEDS: FINASTERIDE 5 MG PO SCH (08:19)
[2017-05-26] MEDS: LISINOPRIL 40 MG PO SCH (08:20)
[2017-05-26] MEDS: FOLIC ACID 1 MG TAB PO SCH (08:21)
[2017-05-26] MEDS: CYANOCOBALAMIN 500 MCG TAB PO SCH (08:21)
[2017-05-26] MEDS: POTASSIUM CHLORIDE (SR) 10 MEQ TAB PO SCH ×2 (08:22→20:47)
[2017-05-26] MEDS: HYDROCHLOROTHIAZIDE 25 MG PO SCH (08:22)
--- NOTE | 2017-05-26 11:13 | CONS ---
Date/Time of Note Date/Time of Note DATE: 05/26/17 TIME: 11:11 Assessment/Plan Assessment/Plan Chief Complaint/Hosp Course IMPRESSION: 1. Abdominal pain confined to the umbilical and epigastric area. 2. Weight loss 30 pounds. 3. Anemia. 4. Benign prostatic hypertrophy. 5. Hypertension. 6. Aortic stenosis. 7. B12 deficiency likely due to TI inflammation Plan B12 injection Continue Folic acid. change famotidine to protonix for better acid suppression consider colonoscopy if abdominal pain do not improve Problems: Consultation Date/Type/Reason Admit Date/Time May 23, 2017 at 22:34 Initial Consult Date Type of Consultation: GI 24 HR Interval Summary Free Text/Dictation having abdominal pain but do not want to take pain meds, opts to use heating pad Exam/Review of Systems Vital Signs Vitals Vital Signs Date Time Temp Pulse Resp B/P Pulse Ox O2 Delivery O2 Flow Rate FiO2 05/26/17 07:55 98.2 77 17 104/66 95 05/24/17 11:35 Nasal Cannula 2.0 Intake and Output 05/25/17 05/25/17 05/26/17 15:00 23:00 07:00 Intake Total 1320 ml 800 ml Output Total 1200 ml 1400 ml Balance 120 ml -600 ml Exam Constitutional: alert, oriented, well developed Psych: nl mood/affect, no complaints Head: atraumatic, normocephalic Eyes: EOMI, nl conjunctiva, nl lids, nl sclera ENMT: mucosa pink and moist, nl external ears & nose, nl lips & teeth, nl nasal mucosa & septum Neck: non-tender, supple Respiratory: clear to auscultation, normal air movement Cardiovascular: nl pulses, regular rate and rhythm Gastrointestinal: bowel sounds, soft, tender (epigastric region) Results Result Diagram: 05/26/178 05/26/178 Results 24 hrs Laboratory Tests Test 05/26/17 04:48 White Blood Count 13.9 H Red Blood Count 3.61 L Hemoglobin 10.7 L Hematocrit 34.0 L Mean Corpuscular Volume 94.2 Mean Corpuscular Hemoglobin 29.6 Mean Corpuscular Hemoglobin Concent 31.5 L Red Cell Distribution Width 14.6 H Platelet Count 312 Mean Platelet Volume 9.1 Neutrophils % 66.9 Lymphocytes % 14.2 L Monocytes % 15.8 H Eosinophils % 1.3 Basophils % 0.2 Nucleated Red Blood Cells % 0.0 Neutrophils # (Manual) 9.3 H Lymphocytes # 2.0 Monocytes # 2.2 H Eosinophils # 0.2 Basophils # 0.0 Nucleated Red Blood Cells # 0.0 Sodium Level 137 Potassium Level 3.6 Chloride Level 106 Carbon Dioxide Level 28 Anion Gap 7 L Blood Urea Nitrogen 15 Creatinine 1.02 Glucose Level 100 Calcium Level 7.7 L Total Bilirubin 0.0 L Direct Bilirubin 0.00 Indirect Bilirubin 0.0 Aspartate Amino Transf (AST/SGOT) 20 Alanine Aminotransferase (ALT/SGPT) 26 Alkaline Phosphatase 88 Total Protein 4.6 L Albumin 2.3 L Globulin 2.30 Albumin/Globulin Ratio 1.00 Medications Medications Current Medications Potassium Chloride (Klor-Con 10) 10 meq BID PO Last administered on 05/26/17 08 :22; Admin Dose 10 MEQ; Start 05/22/17 at 21:00 Acetaminophen (Tylenol Tab) 500 mg Q4H PRN PO PAIN AND OR ELEVATED TEMP; Start 05/22/17 at 21:00 Acetaminophen/ Hydrocodone Bitart ([place] (5/325)) 1 tab Q4H PRN PO SEVERE PAIN LEVEL 7-10; Start 05/22/17 at 21:00 Patient Own Medication 1 ea DAILY PO Last administered on 05/26/17 08:22; Admin Dose 1 EA; Start 05/24/17 at 09:00 Patient Own Medication 1 ea DAILY PO Last administered on 05/26/17 08:20; Admin Dose 1 EA; Start 05/24/17 at 09:00 Patient Own Medication 1 ea HS PO Last administered on 05/25/17 21:07; Admin Dose 1 EA; Start 05/23/17 at 21:00 Patient Own Medication 1 ea DAILY PO Last administered on 05/26/17 08:18; Admin Dose 1 EA; Start 05/24/17 at 09:00 Patient Own Medication 1 ea DAILY PO Last administered on 05/26/17 08:19; Admin Dose 1 EA; Start 05/24/17 at 09:00 Famotidine (Pepcid Iv) 20 mg DAILY IV Last administered on 05/26/17 08:18; Admin Dose 20 MG; Start 05/25/17 at 09:00 Cyanocobalamin (Vitamin B12) 1,000 mcg DAILY PO Last administered on 05/26/17 08:21; Admin Dose 1,000 MCG; Start 05/24/17 at 14:00 Folic Acid (Folic Acid) 1 mg DAILY PO Last administered on 05/26/17 08:21; Admin Dose 1 MG; Start 05/25/17 at 12:00 BG KABA MD May 26, 2017 11:13
[2017-05-26 14:00] VITALS: BP 110/69; RESP 16
--- NOTE | 2017-05-26 18:02 | PN ---
DATE: 05/26/2017 SUBJECTIVE DATA: Patient is awake, alert. OBJECTIVE DATA: Temperature 98.2, blood pressure 104/66, O2 saturation 95 percent on room air. Mild pallor without cyanosis. Chest clinically clear. HEART: S1, S2. No definite gallops. Abdomen with mild diffuse tenderness without rebound. Umbilical hernia unchanged. EXTREMITIES: No edema. LABORATORY: WBC count 13.9, hematocrit 34, platelets 312. Sodium 137, potassium 3.6, BUN 15, creatinine 1.02, calcium 7.7, albumin 2.3. IMPRESSION: 1. Weight loss, etiology undetermined. 2. Vitamin B12 deficiency. 3. Hypertension. 4. Benign prostatic hypertrophy. 5. Leukocytosis of unclear etiology. PLAN: Will continue recommendations per [____]. The patient has been advised to increase activity. We will opt to hold off on Lovenox for now. Recheck labs in a.m. Dictated By: Satnam Cho MD /felipe/elsa /Document#: [id number]
[2017-05-26 18:07] LABS: ALBUMIN 2.6 g/dL (3.8-4.8)
--- NOTE | 2017-05-26 19:05 | PN ---
Date/Time of Note Date/Time of Note DATE: 05/26/17 TIME: 19:01 Assessment/Plan VTE Prophylaxis VTE Prophylaxis Intervention: other Lines/Catheters IV Catheter Type (from [facility]): [place] Urinary Cath still in place: No Assessment/Plan Chief Complaint/Hosp Course 89 year old male with: > B12 deficiency > Gastritis, which > CT suggests terminal ileum inflammation which contributes to B12 absorption. > Abd pain, so far unclear as to exact etiology. > Gastroparesis - which contributes to weight loss. Plan: B12 replacement should be IM - changed order Continue Folic acid. Monitor WBC. Work up of abd pain. Problems: Subjective 24 Hr Interval Summary Free Text/Dictation He continues to c/o abd pain, mostly mid epigastric and right abd pain. Does not want pain meds, using heating pads. Exam/Review of Systems Vital Signs Vitals Vital Signs Date Time Temp Pulse Resp B/P Pulse Ox O2 Delivery O2 Flow Rate FiO2 05/26/17 14:00 98.3 73 16 110/69 96 05/24/17 11:35 Nasal Cannula 2.0 Intake and Output 05/25/17 05/25/17 05/26/17 15:00 23:00 07:00 Intake Total 1320 ml 800 ml Output Total 1200 ml 1400 ml Balance 120 ml -600 ml Exam This elderly male Clear bilaterally Abd most, very mildly tender but no mass, not rigid. No edema. 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, nl mental status, nl speech, nl strength Skin: nl turgor, No rash or lesions Lymph: nl lymph nodes Results Result Diagram: 05/26/17 0448 05/26/178 Results 24 hrs Laboratory Tests Test 05/26/17 04:48 White Blood Count 13.9 H Red Blood Count 3.61 L Hemoglobin 10.7 L Hematocrit 34.0 L Mean Corpuscular Volume 94.2 Mean Corpuscular Hemoglobin 29.6 Mean Corpuscular Hemoglobin Concent 31.5 L Red Cell Distribution Width 14.6 H Platelet Count 312 Mean Platelet Volume 9.1 Neutrophils % 66.9 Lymphocytes % 14.2 L Monocytes % 15.8 H Eosinophils % 1.3 Basophils % 0.2 Nucleated Red Blood Cells % 0.0 Neutrophils # (Manual) 9.3 H Lymphocytes # 2.0 Monocytes # 2.2 H Eosinophils # 0.2 Basophils # 0.0 Nucleated Red Blood Cells # 0.0 Sodium Level 137 Potassium Level 3.6 Chloride Level 106 Carbon Dioxide Level 28 Anion Gap 7 L Blood Urea Nitrogen 15 Creatinine 1.02 Glucose Level 100 Calcium Level 7.7 L Total Bilirubin 0.0 L Direct Bilirubin 0.00 Indirect Bilirubin 0.0 Aspartate Amino Transf (AST/SGOT) 20 Alanine Aminotransferase (ALT/SGPT) 26 Alkaline Phosphatase 88 Total Protein 4.6 L Albumin 2.3 L Globulin 2.30 Albumin/Globulin Ratio 1.00 Medications Medications Current Medications Potassium Chloride (Klor-Con 10) 10 meq BID PO Last administered on 05/26/17 08 :22; Admin Dose 10 MEQ; Start 05/22/17 at 21:00 Acetaminophen (Tylenol Tab) 500 mg Q4H PRN PO PAIN AND OR ELEVATED TEMP; Start 05/22/17 at 21:00 Acetaminophen/ Hydrocodone Bitart ([place] (5/325)) 1 tab Q4H PRN PO SEVERE PAIN LEVEL 7-10; Start 05/22/17 at 21:00 Patient Own Medication 1 ea DAILY PO Last administered on 05/26/17 08:22; Admin Dose 1 EA; Start 05/24/17 at 09:00 Patient Own Medication 1 ea DAILY PO Last administered on 05/26/17 08:20; Admin Dose 1 EA; Start 05/24/17 at 09:00 Patient Own Medication 1 ea HS PO Last administered on 05/25/17 21:07; Admin Dose 1 EA; Start 05/23/17 at 21:00 Patient Own Medication 1 ea DAILY PO Last administered on 05/26/17 08:18; Admin Dose 1 EA; Start 05/24/17 at 09:00 Patient Own Medication 1 ea DAILY PO Last administered on 05/26/17 08:19; Admin Dose 1 EA; Start 05/24/17 at 09:00 Famotidine (Pepcid Iv) 20 mg DAILY IV Last administered on 05/26/17 08:18; Admin Dose 20 MG; Start 05/25/17 at 09:00 Cyanocobalamin (Vitamin B12) 1,000 mcg DAILY PO Last administered on 05/26/17 08:21; Admin Dose 1,000 MCG; Start 05/24/17 at 14:00 Folic Acid (Folic Acid) 1 mg DAILY PO Last administered on 05/26/17 08:21; Admin Dose 1 MG; Start 05/25/17 at 12:00 PEREZ HOLT MD May 26, 2017 19:05
[2017-05-26 19:22] VITALS: BP 143/80; RESP 18
[2017-05-26] MEDS: TAMSULOSIN 0.4 MG PO SCH (20:47)
[2017-05-26] MEDS: CYANOCOBALAMIN 1000 MCG INJ IM SCH (20:48)
[2017-05-27 01:30] VITALS: BP 132/77; RESP 18
[2017-05-27 05:35] LABS: ABNORMAL IP MESSAGE 1; BASOPHILS % 0.3 % (0.0-2.0); EOSINOPHILS # 0.2 10^3/ul (0.0-0.5); EOSINOPHILS % 1.5 % (0.0-7.0); HEMATOCRIT 34.8 % (42.0-52.0); HEMOGLOBIN 10.9 g/dl (14.0-18.0); LYMPHOCYTES % 15.4 % (15.0-51.0); MEAN CORPUSCULAR HEMOGLOBIN 29.4 pg (29.0-33.0); MEAN CORPUSCULAR HGB CONC 31.3 g/dl (32.0-37.0); MEAN CORPUSCULAR VOLUME 93.8 fl (82.0-101.0); MEAN PLATELET VOLUME 9.2 fl (7.4-10.4); MONOCYTE # 2.2 10^3/ul (0.3-0.9); MONOCYTES % 16.7 % (0.0-11.0); NEUTROPHILS % 63.7 % (39.0-77.0); PLATELET COUNT 326 10^3/UL (140-415); POSITIVE DIFF @See below; RED BLOOD COUNT 3.71 10^6/ul (4.70-6.10); RED CELL DISTRIBUTION WIDTH 14.9 % (11.5-14.5)
[2017-05-27 05:59] LABS: CREATININE 0.86 mg/dl (0.61-1.24); PHOSPHORUS 3.1 mg/dl (2.5-4.9); POTASSIUM 3.9 mmol/L (3.5-5.1)
[2017-05-27] MEDS: PANTOPRAZOLE (EC) 40 MG TAB PO SCH ×2 (05:59→18:23)
[2017-05-27 08:13] VITALS: BP 98/56; RESP 18
[2017-05-27] MEDS: ATENOLOL 100 MG PO SCH (08:58)
[2017-05-27] MEDS: LISINOPRIL 40 MG PO SCH (08:58)
[2017-05-27] MEDS: HYDROCHLOROTHIAZIDE 25 MG PO SCH (08:58)
[2017-05-27] MEDS: POTASSIUM CHLORIDE (SR) 10 MEQ TAB PO SCH ×2 (09:08→20:26)
[2017-05-27] MEDS: FOLIC ACID 1 MG TAB PO SCH (09:08)
[2017-05-27] MEDS: CYANOCOBALAMIN 1000 MCG INJ IM SCH (09:09)
[2017-05-27] MEDS: FINASTERIDE 5 MG PO SCH (09:53)
--- NOTE | 2017-05-27 13:50 | CONS ---
Date/Time of Note Date/Time of Note DATE: 05/27/17 TIME: 13:48 Assessment/Plan Assessment/Plan Chief Complaint/Hosp Course IMPRESSION: 1. Abdominal pain confined to the umbilical and epigastric area. 2. Weight loss 30 pounds. 3. Anemia: occult blood negative x 2 4. Benign prostatic hypertrophy. 5. Hypertension. 6. Aortic stenosis. 7. B12 deficiency likely due to TI inflammation Plan B12 injection Continue Folic acid. change famotidine to protonix for better acid suppression consider colonoscopy if abdominal pain do not improve ok from GI perspective to discharge to follow with PCP and hematology for his B12 deficiency. No need for GI f/u as occuult blood negative x 2 Problems: Consultation Date/Type/Reason Admit Date/Time May 23, 2017 at 22:34 Type of Consultation: GI 24 HR Interval Summary Free Text/Dictation eating better, no n/v, no abdominal pain Exam/Review of Systems Vital Signs Vitals Vital Signs Date Time Temp Pulse Resp B/P Pulse Ox O2 Delivery O2 Flow Rate FiO2 05/27/17 08:13 98.1 76 18 98/56 97 05/24/17 11:35 Nasal Cannula 2.0 Intake and Output 05/26/17 05/26/17 05/27/17 15:00 23:00 07:00 Intake Total 500 ml 540 ml Output Total 500 ml 400 ml Balance 0 ml 140 ml Exam Constitutional: alert, oriented, well developed Psych: nl mood/affect, no complaints Head: atraumatic, normocephalic Eyes: EOMI, nl conjunctiva, nl lids, nl sclera ENMT: mucosa pink and moist, nl external ears & nose, nl lips & teeth, nl nasal mucosa & septum Neck: non-tender, supple Respiratory: clear to auscultation, normal air movement Cardiovascular: nl pulses, regular rate and rhythm Gastrointestinal: bowel sounds, non-tender, soft Results Result Diagram: 05/27/17 0455 05/27/17 0455 Results 24 hrs Laboratory Tests Test 05/26/17 15:11 05/27/17 04:55 Stool Occult Blood NEGATIVE White Blood Count 13.0 H Red Blood Count 3.71 L Hemoglobin 10.9 L Hematocrit 34.8 L Mean Corpuscular Volume 93.8 Mean Corpuscular Hemoglobin 29.4 Mean Corpuscular Hemoglobin Concent 31.3 L Red Cell Distribution Width 14.9 H Platelet Count 326 Mean Platelet Volume 9.2 Neutrophils % 63.7 Lymphocytes % 15.4 Monocytes % 16.7 H Eosinophils % 1.5 Basophils % 0.3 Nucleated Red Blood Cells % 0.0 Neutrophils # (Manual) 8.3 H Lymphocytes # 2.0 Monocytes # 2.2 H Eosinophils # 0.2 Basophils # 0.0 Nucleated Red Blood Cells # 0.0 Sodium Level 138 Potassium Level 3.9 Chloride Level 109 Carbon Dioxide Level 26 Anion Gap 7 L Blood Urea Nitrogen 17 Creatinine 0.86 Glucose Level 90 Calcium Level 8.0 L Phosphorus Level 3.1 Magnesium Level 2.0 Medications Medications Current Medications Potassium Chloride (Klor-Con 10) 10 meq BID PO Last administered on 05/27/17 09 :08; Admin Dose 10 MEQ; Start 05/22/17 at 21:00 Acetaminophen (Tylenol Tab) 500 mg Q4H PRN PO PAIN AND OR ELEVATED TEMP; Start 05/22/17 at 21:00 Acetaminophen/ Hydrocodone Bitart ([place] (5/325)) 1 tab Q4H PRN PO SEVERE PAIN LEVEL 7-10; Start 05/22/17 at 21:00 Patient Own Medication 1 ea DAILY PO Last administered on 05/26/17 08:22; Admin Dose 1 EA; Start 05/24/17 at 09:00 Patient Own Medication 1 ea DAILY PO Last administered on 05/26/17 08:20; Admin Dose 1 EA; Start 05/24/17 at 09:00 Patient Own Medication 1 ea HS PO Last administered on 05/26/17 20:47; Admin Dose 1 EA; Start 05/23/17 at 21:00 Patient Own Medication 1 ea DAILY PO Last administered on 05/26/17 08:18; Admin Dose 1 EA; Start 05/24/17 at 09:00 Patient Own Medication 1 ea DAILY PO Last administered on 05/27/17 09:53; Admin Dose 1 EA; Start 05/24/17 at 09:00 Folic Acid (Folic Acid) 1 mg DAILY PO Last administered on 05/27/17 09:08; Admin Dose 1 MG; Start 05/25/17 at 12:00 Cyanocobalamin (Vitamin B12 Inj) 1,000 mcg DAILY IM Last administered on 09:09; Admin Dose 1,000 MCG; Start 05/26/17 at 21:00 Pantoprazole (Protonix Tab) 40 mg BID@06,18 PO Last administered on 05/27/17t 05 :59; Admin Dose 40 MG; Start 05/27/17 at 06:00 BG KABA MD May 27, 2017 13:50
[2017-05-27 15:28] VITALS: BP 113/67; RESP 20
--- NOTE | 2017-05-27 16:34 | PN ---
Date/Time of Note Date/Time of Note DATE: 05/27/17 TIME: 16:32 Assessment/Plan VTE Prophylaxis VTE Prophylaxis Intervention: other Lines/Catheters IV [facility]from [facility] Saline Lock Urinary Cath still in place: No Assessment/Plan Chief Complaint/Hosp Course 89 year old male with: > B12 deficiency, on replacement with IM B12 now. > Gastritis, which may be causing abd pain. > CT suggests terminal ileum inflammation which contributes to B12 absorption. > Abd pain, is better. > Gastroparesis - which contributes to weight loss. Plan: Continue B12 replacement. Further lab testing is pending for evaluation of elevated WBC. He should f/u with Dr. Hollis when discharged. Problems: Subjective 24 Hr Interval Summary Free Text/Dictation He feels better. The abdominal pain is much better and almost resolved. Exam/Review of Systems Vital Signs Vitals Vital Signs Date Time Temp Pulse Resp B/P Pulse Ox O2 Delivery O2 Flow Rate FiO2 05/27/17 15:28 98.1 71 20 113/67 98 05/24/17 11:35 Nasal Cannula 2.0 Intake and Output 05/26/17 05/26/17 05/27/17 15:00 23:00 07:00 Intake Total 500 ml 540 ml Output Total 500 ml 400 ml Balance 0 ml 140 ml Exam Very thin NAD Abd - non tender, no HSM, no guarding. No edema. Results Result Diagram: 05/27/17 0455 05/27/17 0455 Results 24 hrs Laboratory Tests Test 05/27/17 04:55 White Blood Count 13.0 H Red Blood Count 3.71 L Hemoglobin 10.9 L Hematocrit 34.8 L Mean Corpuscular Volume 93.8 Mean Corpuscular Hemoglobin 29.4 Mean Corpuscular Hemoglobin Concent 31.3 L Red Cell Distribution Width 14.9 H Platelet Count 326 Mean Platelet Volume 9.2 Neutrophils % 63.7 Lymphocytes % 15.4 Monocytes % 16.7 H Eosinophils % 1.5 Basophils % 0.3 Nucleated Red Blood Cells % 0.0 Neutrophils # (Manual) 8.3 H Lymphocytes # 2.0 Monocytes # 2.2 H Eosinophils # 0.2 Basophils # 0.0 Nucleated Red Blood Cells # 0.0 Sodium Level 138 Potassium Level 3.9 Chloride Level 109 Carbon Dioxide Level 26 Anion Gap 7 L Blood Urea Nitrogen 17 Creatinine 0.86 Glucose Level 90 Calcium Level 8.0 L Phosphorus Level 3.1 Magnesium Level 2.0 Medications Medications Current Medications Potassium Chloride (Klor-Con 10) 10 meq BID PO Last administered on 05/27/17 09 :08; Admin Dose 10 MEQ; Start 05/22/17 at 21:00 Acetaminophen (Tylenol Tab) 500 mg Q4H PRN PO PAIN AND OR ELEVATED TEMP; Start 05/22/17 at 21:00 Acetaminophen/ Hydrocodone Bitart ([place] (5/325)) 1 tab Q4H PRN PO SEVERE PAIN LEVEL 7-10; Start 05/22/17 at 21:00 Patient Own Medication 1 ea DAILY PO Last administered on 05/26/17 08:22; Admin Dose 1 EA; Start 05/24/17 at 09:00 Patient Own Medication 1 ea DAILY PO Last administered on 05/26/17 08:20; Admin Dose 1 EA; Start 05/24/17 at 09:00 Patient Own Medication 1 ea HS PO Last administered on 05/26/17 20:47; Admin Dose 1 EA; Start 05/23/17 at 21:00 Patient Own Medication 1 ea DAILY PO Last administered on 05/26/17 08:18; Admin Dose 1 EA; Start 05/24/17 at 09:00 Patient Own Medication 1 ea DAILY PO Last administered on 05/27/17 09:53; Admin Dose 1 EA; Start 05/24/17 at 09:00 Folic Acid (Folic Acid) 1 mg DAILY PO Last administered on 05/27/17 09:08; Admin Dose 1 MG; Start 05/25/17 at 12:00 Cyanocobalamin (Vitamin B12 Inj) 1,000 mcg DAILY IM Last administered on 09:09; Admin Dose 1,000 MCG; Start 05/26/17 at 21:00 Pantoprazole (Protonix Tab) 40 mg BID@18 PO Last administered on 05/27/17 05 :59; Admin Dose 40 MG; Start 05/27/17 at 06:00 PEREZ HOLT MD May 27, 2017 16:34
--- NOTE | 2017-05-27 19:23 | PN ---
DATE: 05/27/2017 SUBJECTIVE: The patient continues to have abdominal discomfort. Appetite is poor. Taking protein supplements. OBJECTIVE DATA: VITAL SIGNS: Temperature 98.1, blood pressure 98/56. CHEST: Clinically clear. HEART: S1, S2. No gallops. ABDOMEN: Abdomen is soft. Mild diffuse tenderness without rebound. EXTREMITIES: No edema. Homans sign is negative. IMPRESSION: 1. Abdominal pain of uncertain etiology. 2. Status post weight loss with no evidence for gastrointestinal bleed so far. 3. Vitamin B12 deficiency. 4. Hypertension, uncontrolled. Presently on the hypotensive side. 5. Leukocytosis of unclear etiology. PLAN: Will repeat labs in a.m. Advised patient to increase activity. If the patient is stable over next 24 hours, consider discharge and follow up as outpatient. Dictated By: Satnam Cho MD /felipe/christopher /Document#: [id number]
[2017-05-27 19:29] VITALS: BP 147/79; RESP 16
[2017-05-27] MEDS: TAMSULOSIN 0.4 MG PO SCH (20:26)
[2017-05-28 02:08] VITALS: BP 112/69; RESP 16
[2017-05-28] MEDS: PANTOPRAZOLE (EC) 40 MG TAB PO SCH (05:02)
[2017-05-28 06:26] LABS: ABNORMAL IP MESSAGE 1; BASOPHILS % 0.3 % (0.0-2.0); EOSINOPHILS # 0.2 10^3/ul (0.0-0.5); EOSINOPHILS % 1.2 % (0.0-7.0); HEMATOCRIT 33.8 % (42.0-52.0); HEMOGLOBIN 10.5 g/dl (14.0-18.0); LYMPHOCYTES # 2.8 10^3/ul (0.8-2.9); LYMPHOCYTES % 18.9 % (15.0-51.0); MEAN CORPUSCULAR HEMOGLOBIN 29.1 pg (29.0-33.0); MEAN CORPUSCULAR HGB CONC 31.1 g/dl (32.0-37.0); MEAN CORPUSCULAR VOLUME 93.6 fl (82.0-101.0); MEAN PLATELET VOLUME 9.4 fl (7.4-10.4); MONOCYTE # 2.2 10^3/ul (0.3-0.9); MONOCYTES % 14.7 % (0.0-11.0); NEUTROPHILS % 62.9 % (39.0-77.0); PLATELET COUNT 342 10^3/UL (140-415); POSITIVE DIFF @See below; RED BLOOD COUNT 3.61 10^6/ul (4.70-6.10); RED CELL DISTRIBUTION WIDTH 14.8 % (11.5-14.5); WHITE BLOOD COUNT 14.7 10^3/ul (4.8-10.8)
[2017-05-28 06:57] LABS: CREATININE 0.76 mg/dl (0.61-1.24)
[2017-05-28 07:00] VITALS: BP 107/57; RESP 18
[2017-05-28] MEDS: ATENOLOL 100 MG PO SCH (08:26)
[2017-05-28] MEDS: LISINOPRIL 40 MG PO SCH (08:27)
[2017-05-28] MEDS: FINASTERIDE 5 MG PO SCH (08:27)
[2017-05-28] MEDS: HYDROCHLOROTHIAZIDE 25 MG PO SCH (08:27)
[2017-05-28] MEDS: CYANOCOBALAMIN 1000 MCG INJ IM SCH (08:34)
[2017-05-28] MEDS: POTASSIUM CHLORIDE (SR) 10 MEQ TAB PO SCH (08:34)
[2017-05-28] MEDS: FOLIC ACID 1 MG TAB PO SCH (08:34)
[2017-05-28] MEDS ORDERED: FINASTERIDE 5 MG TAB PO SCH (09:00)
[2017-05-28 09:36] VITALS: BP 172/78; PULSE 92
--- NOTE | 2017-05-28 11:16 | CONS ---
Date/Time of Note Date/Time of Note DATE: 05/28/17 TIME: 11:15 Assessment/Plan Assessment/Plan Chief Complaint/Hosp Course IMPRESSION: 1. Abdominal pain confined to the umbilical and epigastric area. 2. Weight loss 30 pounds. 3. Anemia: occult blood negative x 2 4. Benign prostatic hypertrophy. 5. Hypertension. 6. Aortic stenosis. 7. B12 deficiency likely due to TI inflammation Plan B12 injection Continue Folic acid. change famotidine to protonix for better acid suppression consider colonoscopy if abdominal pain do not improve ok from GI perspective to discharge to follow with PCP and hematology for his B12 deficiency. No need for GI f/u as occult blood negative x 2 If patient not discharged, then Dr. Julian will resume care tomorrow from GI perspective. Problems: Consultation Date/Type/Reason Admit Date/Time May 23, 2017 at 22:34 Type of Consultation: GI 24 HR Interval Summary Free Text/Dictation eating better, no n/v Constitutional: improved Exam/Review of Systems Vital Signs Vitals Vital Signs Date Time Temp Pulse Resp B/P Pulse Ox O2 Delivery O2 Flow Rate FiO2 05/28/17 07:00 98.2 87 18 107/57 96 05/24/17 11:35 Nasal Cannula 2.0 Intake and Output 05/27/17 05/27/17 05/28/17 14:59 22:59 06:59 Intake Total 490 ml 950 ml Output Total 200 ml 850 ml Balance 290 ml 100 ml Exam Constitutional: alert, oriented, well developed Psych: nl mood/affect, no complaints Head: atraumatic, normocephalic Eyes: EOMI, nl conjunctiva, nl lids, nl sclera ENMT: nl external ears & nose, nl lips & teeth, nl nasal mucosa & septum Neck: non-tender, supple Respiratory: clear to auscultation, normal air movement Cardiovascular: nl pulses, regular rate and rhythm Gastrointestinal: bowel sounds, non-tender, soft Results Result Diagram: 05/28/17 0458 05/28/17 0457 Results 24 hrs Laboratory Tests Test 05/28/17 04:57 05/28/17 04:58 05/28/17 08:46 Sodium Level 137 Potassium Level 4.0 Chloride Level 108 Carbon Dioxide Level 25 Anion Gap 8 Blood Urea Nitrogen 19 Creatinine 0.76 Glucose Level 94 Calcium Level 8.0 L White Blood Count 14.7 H Red Blood Count 3.61 L Hemoglobin 10.5 L Hematocrit 33.8 L Mean Corpuscular Volume 93.6 Mean Corpuscular Hemoglobin 29.1 Mean Corpuscular Hemoglobin Concent 31.1 L Red Cell Distribution Width 14.8 H Platelet Count 342 Mean Platelet Volume 9.4 Neutrophils % 62.9 Lymphocytes % 18.9 Monocytes % 14.7 H Eosinophils % 1.2 Basophils % 0.3 Nucleated Red Blood Cells % 0.0 Neutrophils # (Manual) 9.2 H Lymphocytes # 2.8 Monocytes # 2.2 H Eosinophils # 0.2 Basophils # 0.0 Nucleated Red Blood Cells # 0.0 Lab Scanned Report REFERENCE LAB Medications Medications Current Medications Potassium Chloride (Klor-Con 10) 10 meq BID PO Last administered on 05/28/17 08 :34; Admin Dose 10 MEQ; Start 05/22/17 at 21:00 Acetaminophen (Tylenol Tab) 500 mg Q4H PRN PO PAIN AND OR ELEVATED TEMP; Start 05/22/17 at 21:00 Acetaminophen/ Hydrocodone Bitart ([place] (5/325)) 1 tab Q4H PRN PO SEVERE PAIN LEVEL 7-10 Last administered on 05/28/17 05:02; Admin Dose 1 TAB; Start at 21:00 Patient Own Medication 1 ea DAILY PO Last administered on 05/26/17 08:22; Admin Dose 1 EA; Start 05/24/17 at 09:00 Patient Own Medication 1 ea DAILY PO Last administered on 05/26/17 08:20; Admin Dose 1 EA; Start 05/24/17 at 09:00 Patient Own Medication 1 ea HS PO Last administered on 05/27/17 20:26; Admin Dose 1 EA; Start 05/23/17 at 21:00 Patient Own Medication 1 ea DAILY PO Last administered on 05/26/17 08:18; Admin Dose 1 EA; Start 05/24/17 at 09:00 Patient Own Medication 1 ea DAILY PO Last administered on 05/27/17 09:53; Admin Dose 1 EA; Start 05/24/17 at 09:00 Folic Acid (Folic Acid) 1 mg DAILY PO Last administered on 05/28/17 08:34; Admin Dose 1 MG; Start 05/25/17 at 12:00 Cyanocobalamin (Vitamin B12 Inj) 1,000 mcg DAILY IM Last administered on 08:34; Admin Dose 1,000 MCG; Start 05/26/17 at 21:00 Pantoprazole (Protonix Tab) 40 mg BID@18 PO Last administered on 05/28/17 05 :02; Admin Dose 40 MG; Start 05/27/17 at 06:00 Finasteride (Proscar) 5 mg DAILY PO Last administered on 05/28/17 08:34; Admin Dose 5 MG; Start 05/28/17 at 09:00 BG KABA MD May 28, 2017 11:16
[2017-05-28 14:00] VITALS: BP 99/63; RESP 18
--- NOTE | 2017-05-28 16:01 | PN ---
Date/Time of Note Date/Time of Note DATE: 05/28/17 TIME: 15:59 Assessment/Plan VTE Prophylaxis VTE Prophylaxis Intervention: other Lines/Catheters IV Catheter Type (from Nrs): Saline Lock Urinary Cath still in place: No Assessment/Plan Chief Complaint/Hosp Course 89 year old male with: > B12 deficiency, on replacement with IM B12 now. > Gastritis, which may be causing abd pain. > CT suggests terminal ileum inflammation which contributes to B12 absorption. > Abd pain, is better. Origin unclear. > Gastroparesis - which contributes to weight loss. Plan: Continue B12 replacement. BRC/ABL testing is negative. He should f/u with Dr. Hollis when discharged. Problems: Subjective 24 Hr Interval Summary Free Text/Dictation Apparently had abd pain after I examined him Now better again and mild. Wants to be discharged, and does not want an exam. Exam/Review of Systems Vital Signs Vitals Vital Signs Date Time Temp Pulse Resp B/P Pulse Ox O2 Delivery O2 Flow Rate FiO2 05/28/17 14:00 98.7 94 18 99/63 97 05/24/17 11:35 Nasal Cannula 2.0 Intake and Output 05/27/17 05/27/17 05/28/17 15:00 23:00 07:00 Intake Total 490 ml 950 ml Output Total 200 ml 850 ml Balance 290 ml 100 ml Results Result Diagram: 05/28/17 0458 05/28/17 0457 Results 24 hrs Laboratory Tests Test 05/28/17 04:57 05/28/17 04:58 05/28/17 08:46 Sodium Level 137 Potassium Level 4.0 Chloride Level 108 Carbon Dioxide Level 25 Anion Gap 8 Blood Urea Nitrogen 19 Creatinine 0.76 Glucose Level 94 Calcium Level 8.0 L White Blood Count 14.7 H Red Blood Count 3.61 L Hemoglobin 10.5 L Hematocrit 33.8 L Mean Corpuscular Volume 93.6 Mean Corpuscular Hemoglobin 29.1 Mean Corpuscular Hemoglobin Concent 31.1 L Red Cell Distribution Width 14.8 H Platelet Count 342 Mean Platelet Volume 9.4 Neutrophils % 62.9 Lymphocytes % 18.9 Monocytes % 14.7 H Eosinophils % 1.2 Basophils % 0.3 Nucleated Red Blood Cells % 0.0 Neutrophils # (Manual) 9.2 H Lymphocytes # 2.8 Monocytes # 2.2 H Eosinophils # 0.2 Basophils # 0.0 Nucleated Red Blood Cells # 0.0 Lab Scanned Report REFERENCE LAB Medications Medications Current Medications Potassium Chloride (Klor-Con 10) 10 meq BID PO Last administered on 05/28/17 08 :34; Admin Dose 10 MEQ; Start 05/22/17 at 21:00 Patient Own Medication 1 ea DAILY PO Last administered on 05/26/17 08:22; Admin Dose 1 EA; Start 05/24/17 at 09:00 Patient Own Medication 1 ea DAILY PO Last administered on 05/26/17 08:20; Admin Dose 1 EA; Start 05/24/17 at 09:00 Patient Own Medication 1 ea HS PO Last administered on 05/27/17 20:26; Admin Dose 1 EA; Start 05/23/17 at 21:00 Patient Own Medication 1 ea DAILY PO Last administered on 05/26/17 08:18; Admin Dose 1 EA; Start 05/24/17 at 09:00 Patient Own Medication 1 ea DAILY PO Last administered on 05/27/17 09:53; Admin Dose 1 EA; Start 05/24/17 at 09:00 Folic Acid (Folic Acid) 1 mg DAILY PO Last administered on 05/28/17 08:34; Admin Dose 1 MG; Start 05/25/17 at 12:00 Pantoprazole (Protonix Tab) 40 mg BID@,18 PO Last administered on 05/28/17 05 :02; Admin Dose 40 MG; Start 05/27/17 at 06:00 Finasteride (Proscar) 5 mg DAILY PO Last administered on 05/28/17 08:34; Admin Dose 5 MG; Start 05/28/17 at 09:00 PEREZ HOLT MD May 28, 2017 16:01
--- NOTE | 2017-05-28 16:36 | DS ---
DATE OF ADMISSION: 05/23/2017 DATE OF DISCHARGE: 05/28/2017 FINAL DIAGNOSES: 1. Weight loss with 30 plus pounds, with no evidence of malignancy. 2. 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 Further workup including intrinsic factor blocking antibody is pending. 3. Gastritis. 4. Hypertension. 5. Aortic stenosis. 6. Benign prostatic hypertrophy. HOSPITAL COURSE: The patient, is an 89-year-old gentleman presenting with severe weakness, generalized persistent weight loss over the past 4 months about 30 pounds and complains of feeling of bloating and pain in the left upper lobe quadrant and no prior history of GI bleed. The patient also has history of aortic stenosis. The patient was admitted to the medical floor and underwent a GI workup including colonoscopy, which showed erosive gastritis. Gastritis and gastroparesis. The patient also underwent a colonoscopy which showed a 1 cm sessile polyp in the ascending colon, which was removed. The patient was seen by Dr. Hollis and a workup for B12 deficiency was initiated. The patient was begun on injection B12 along with folic acid by mouth. The patient gradually improved. He had persistent leukocytosis, on 05/28/2017, his white count 14.7, however, there was no signs of any obvious infection. A urinalysis was negative. Stool for OB was negative. The patient was discharged home in much improved condition to continue B12 and folate supplements and follow up CBC in 1 week. The patient will follow up with Dr. Hollis also in 1 week. We are awaiting the intrinsic factor blocking antibody. DISCHARGE CONDITION: Much improved. Dictated By: Satnam Cho MD /felipe/sommer /Document#: [id number]
[2017-05-29 17:17] LABS: HOMOCYSTEINE - CARDIOVASCULAR 15.7 umol/L (<11.4)
[2017-05-30 09:36] LABS: INTRINSIC FACTOR AB NEGATIVE
== END 2017-05-28 17:30 | disposition home or self-care (01) | DRG 629 ==
LOC: MS1 19:22 → OBSVTOIN 05-23 22:34
PROVIDERS: ADMIT Internal Medicine; ATTEND Internal Medicine
PROC: 0DBK8ZX Excision of Ascending Colon, Via Natural or Artificial Opening Endoscopic, Diagnostic (ICD-10-PCS; 2017-05-24)
PROC: 0DB Gastrointestinal System, Excision (ICD-10-PCS; principal; 2017-05-24 10:00)
PROC: 0DB68ZX Excision of Stomach, Via Natural or Artificial Opening Endoscopic, Diagnostic (ICD-10-PCS; 2017-05-24 10:00)
DX: R63.4 Abnormal weight loss (principal); K22.10 Ulcer of esophagus without bleeding; D64.9 Anemia, unspecified; I35.0 Nonrheumatic aortic (valve) stenosis; E53.8 Deficiency of other specified B group vitamins; K31.84 Gastroparesis; D72.829 Elevated white blood cell count, unspecified; N40.0 Benign prostatic hyperplasia without lower urinary tract symptoms; K29.60 Other gastritis without bleeding; K42.9 Umbilical hernia without obstruction or gangrene; I10 Essential (primary) hypertension; K63.5 Polyp of colon; K64.9 Unspecified hemorrhoids; Z87.891 Personal history of nicotine dependence; Z80.51 Family history of malignant neoplasm of kidney; K52.9 Noninfective gastroenteritis and colitis, unspecified
CPT/HCPCS: 71020; 74177; 80048; 80053; 81003; 81270; 82270; 82607; 82728; 82746; 82784; 83090; 83540; 83615; 83735; 83921; 84100; 84155; 84165; 84560; 85025; 85610; 85730; 86320; 86340; 87086; 88305; 88312; 97110; 97116; 97162; C9113; G0378; J2370; J3420; J7042; Q9967